=== PATIENT | male | born 2000 | race Caucasian/White ===

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

== ENCOUNTER 2023-01-26 18:34 | Emergency (ER) | payer BC, MEDICAID | END 2023-01-26 21:11 | disposition home or self-care (01) | LOC: JP.ED 18:34 | DX: S93.401A Sprain of unspecified ligament of right ankle, initial encounter (principal); Z88.2 Allergy status to sulfonamides; X50.1XXA Overexertion from prolonged static or awkward postures, initial encounter; Y93.67 Activity, basketball | CPT/HCPCS: 73610-26-RT; 73610-RT; 96372; 99283 ==